=== PATIENT | male | born 1995 | race Caucasian/White ===

== ENCOUNTER 2017-12-03 20:11 | Emergency (ER) | payer OTHER ==
[~2017-12-03] VITALS: Ht 188 cm; Wt 89.7 kg
[2017-12-03 20:15] VITALS: TEMP 37; Ht 188 cm; Wt 89.7 kg
[2017-12-03] MEDS ORDERED: SODIUM CHLORIDE 0.9% 1000ML 1,000 ML IV STA (20:42)
[2017-12-03 20:55] LABS: BASO % 0.1 %; BASO ABS # 0.01 K/uL (0-0.2); EOS % 0.2 %; EOS ABS # 0.02 K/uL (0-0.5); HEMATOCRIT 43.6 % (42-52); HEMOGLOBIN 15.1 g/dL (14.0-18.0); IG# 0.02 K/uL (0.00-0.02); LYMPH ABS # 1.32 K/uL (1.2-3.4); MEAN CELL VOLUME 86.9 fL (80-100); MEAN CORPUSCULAR HEMOGLOBIN 30.1 pg (25-34); MEAN CORPUSCULAR HGB CONC 34.6 g/dl (32-36); MEAN PLATELET VOLUME 10.4 fL (7.4-10.4); MONO % 5.7 %; MONO ABS # 0.47 K/uL (0.11-0.59); NEUT % 77.8 %; PLATELET COUNT 270 K/uL (130-400); RED CELL DISTRIBUTION WIDTH CV 12.4 % (11.5-14.5); RED CELL DISTRIBUTION WIDTH SD 39.3 fL (36.4-46.3); WHITE BLOOD COUNT 8.24 K/uL (4.8-10.8)
--- NOTE | 2017-12-03 20:58 | DIAGNOSTIC IMAGING REPORT ---
CHEST ONE VIEW PORTABLE CLINICAL HISTORY: Weakness COMPARISON STUDY: No previous studies for comparison. FINDINGS: The cardiac and mediastinal contours are normal. There is no evidence of focal pulmonary consolidation. There is no evidence of failure. No pleural effusions are visualized.[ IMPRESSION: No active disease in the chest. Electronically signed by: Rocco Garcia M.D. 12/03/2017 8:57 PM Dictated Date/Time: 12/03/2017 8:57 PM
[2017-12-03 21:20] LABS: ALBUMIN 4.4 gm/dl (3.4-5.0); ALKALINE PHOSPHATASE 48 U/L (45-117); ALT/SGPT 24 U/L (12-78); AST/SGOT 16 U/L (15-37); BLOOD UREA NITROGEN 11 mg/dl (7-18); CALCIUM 9.4 mg/dl (8.5-10.1); CARBON DIOXIDE 24 mmol/L (21-32); CREATININE 1.23 mg/dl (0.60-1.40); GLUCOSE 146 mg/dl (70-99); LIPASE 68 U/L (73-393); POTASSIUM 3.1 mmol/L (3.5-5.1); SODIUM 139 mmol/L (136-145); TOTAL PROTEIN 8.4 gm/dl (6.4-8.2)
[2017-12-03] MEDS ORDERED: IBUP-1050 PO (21:40)
[2017-12-03] MEDS ORDERED: [UNRECOGNIZED DRUG - OTHER] PO (21:40)
[2017-12-03 22:24] VITALS: BP 163/89; PULSE 97; O2SAT 98
--- NOTE | 2017-12-03 22:56 | EMERGENCY ROOM VISIT NOTE ---
History Report prepared by Patria: Bridget Crooks Under the Supervision of: Dr. Naldo Tomas D.O. First contact with patient: 20:29 Chief Complaint: HYPERTENSION Stated Complaint: HYPERTENSION NUMBNESS SOB History of Present Illness The patient is a 22 year old male who presents to the Emergency Room with complaints of hypertension beginning today. He states that 2 weeks ago he began having headaches, fatigue, and lightheadedness that would be constant everyday. He reports he went to [facility] last week and was told to monitor his blood pressure for the next week. He notes that over the past 2 days, he had some numbness and tingling in his bilateral legs, feet, and hands. 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 The pt reports he was on a bus from [place] for 5 hours yesterday but denies headache, change in vision, fevers, shortness of breath, nausea, vomiting, diarrhea, pain with urination, and melena. He states he got bit by a tick 2 months ago but never developed a rash however, he is currently requesting a Lyme's test. Patient denies diabetes, hypertension, hyperlipidemia, CAD, history of sudden at a young age, and smoking. Patient denies swelling of calves, history of immobilization or recent surgery, prior history of DVT, hemoptysis, or history of malignancy. 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 A total of 10 systems reviewed and were otherwise negative. Past Medical & Surgical Medical Problems: (1) No significant past medical history Family History No pertinent family history Social History Smoking Status: Never Smoker Smokeless Tobacco Use: Unknown Marital Status: in relationship Occupation Status: [employer] student Current/Historical Medications Scheduled PRN Ibuprofen (Advil), 200-400 MG PO BID PRN for Pain [Sudafed-Naproxen], 1 TAB PO Q12 PRN for Physical Exam Vital Signs Date Time Temp Pulse Resp B/P (MAP) Pulse Ox O2 Delivery O2 Flow Rate FiO2 12/03/17 22:24 97 20 163/89 98 12/03/17 22:16 87 19 12/03/17 22:11 93 18 99 12/03/17 22:06 92 18 97 12/03/17 22:01 105 11 97 12/03/17 22:00 163/89 12/03/17 21:56 98 14 91 12/03/17 21:51 100 17 100 12/03/17 21:46 100 19 98 12/03/17 21:41 86 17 12/03/17 21:36 98 17 12/03/17 21:31 98 22 163/89 100 Room Air 12/03/17 21:26 99 23 164/88 12/03/17 21:21 106 14 98 12/03/17 21:16 101 14 12/03/17 21:11 90 19 100 12/03/17 21:09 91 18 148/101 98 Room Air 12/03/17 21:06 82 18 99 12/03/17 21:01 89 10 95 12/03/17 21:00 148/108 12/03/17 20:56 90 20 98 12/03/17 20:51 89 13 100 12/03/17 20:46 94 13 12/03/17 20:41 109 29 12/03/17 20:36 108 21 87 12/03/17 20:34 97 12/03/17 20:31 103 20 167/97 98 12/03/17 20:26 160/92 12/03/17 20:15 37.0 93 18 172/99 99 Room Air Physical Exam GENERAL: Sitting up in bed, alert, well appearing, well nourished, no distress, non-toxic EYE EXAM: normal conjunctiva. PERRL and EOM's intact. OROPHARYNX: no exudate, no erythema, lips, buccal mucosa, and tongue normal and mucous membranes are moist NECK: supple, no nuchal rigidity, no adenopathy, non-tender LUNGS: Clear to auscultation. Normal chest wall mechanics HEART: no murmurs, S1 normal and S2 normal ABDOMEN: abdomen soft, non-tender, normo-active bowel sounds, no masses, no rebound or guarding. BACK: Back is symmetrical on inspection and there is no deformity, no midline tenderness, no CVA tenderness. SKIN: no rashes and no bruising UPPER EXTREMITIES: upper extremities are grossly normal. LOWER EXTREMITIES: No pitting edema. NEURO EXAM: Normal sensorium, cranial nerves II-XII grossly intact, normal speech, no gross weakness of arms, no gross weakness of legs. Ambulates without difficulty. Medical Decision & Procedures ER Provider Diagnostic Interpretation: Radiology results as stated below per my review and the radiologist's interpretation: CHEST ONE VIEW PORTABLE CLINICAL HISTORY: Weakness COMPARISON STUDY: No previous studies for comparison. FINDINGS: The cardiac and mediastinal contours are normal. There is no evidence of focal pulmonary consolidation. There is no evidence of failure. No pleural effusions are visualized.[ IMPRESSION: No active disease in the chest. Electronically signed by: Rocco Garcia M.D. 12/03/2017 8:57 PM Laboratory Results 12/03/17 20:32 Red Blood Count 5.02, Mean Corpuscular Volume 86.9, Mean Corpuscular Hemoglobin 30.1, Mean Corpuscular Hemoglobin Concent 34.6, Mean Platelet Volume 10.4, Neutrophils (%) (Auto) 77.8, Lymphocytes (%) (Auto) 16.0, Monocytes (%) (Auto) 5.7, Eosinophils (%) (Auto) 0.2, Basophils (%) (Auto) 0.1, Neutrophils # (Auto) 6.40, Lymphocytes # (Auto) 1.32, Monocytes # (Auto) 0.47, Eosinophils # (Auto) 0.02, Basophils # (Auto) 0.01 12/03/17 20:32 Test 12/03/17 20:32 White Blood Count 8.24 K/uL (4.8-10.8) Red Blood Count 5.02 M/uL (4.7-6.1) Hemoglobin 15.1 g/dL (14.0-18.0) Hematocrit 43.6 % (42-52) Mean Corpuscular Volume 86.9 fL (80-100) Mean Corpuscular Hemoglobin 30.1 pg (25-34) Mean Corpuscular Hemoglobin Concent 34.6 g/dl (32-36) Platelet Count 270 K/uL (130-400) Mean Platelet Volume 10.4 fL (7.4-10.4) Neutrophils (%) (Auto) 77.8 % Lymphocytes (%) (Auto) 16.0 % Monocytes (%) (Auto) 5.7 % Eosinophils (%) (Auto) 0.2 % Basophils (%) (Auto) 0.1 % Neutrophils # (Auto) 6.40 K/uL (1.4-6.5) Lymphocytes # (Auto) 1.32 K/uL (1.2-3.4) Monocytes # (Auto) 0.47 K/uL (0.11-0.59) Eosinophils # (Auto) 0.02 K/uL (0-0.5) Basophils # (Auto) 0.01 K/uL (0-0.2) RDW Standard Deviation 39.3 fL (36.4-46.3) RDW Coefficient of Variation 12.4 % (11.5-14.5) Immature Granulocyte % (Auto) 0.2 % Immature Granulocyte # (Auto) 0.02 K/uL (0.00-0.02) D-Dimer 200 ug/L FEU (0-500) Anion Gap 11.0 mmol/L (3-11) Est Creatinine Clear Calc Drug Dose 110.5 ml/min Estimated GFR () 96.7 Estimated GFR (Non- 83.4 BUN/Creatinine Ratio 8.7 (10-20) Calcium Level 9.4 mg/dl (8.5-10.1) Total Bilirubin 1.2 mg/dl (0.2-1) Direct Bilirubin 0.3 mg/dl (0-0.2) Aspartate Amino Transf (AST/SGOT) 16 U/L (15-37) Alanine Aminotransferase (ALT/SGPT) 24 U/L (12-78) Alkaline Phosphatase 48 U/L (45-117) Troponin I < 0.015 ng/ml (0-0.045) Total Protein 8.4 gm/dl (6.4-8.2) Albumin 4.4 gm/dl (3.4-5.0) Lipase 68 U/L (73-393) Lyme Disease IgG Antibody NEG (NEG) Lyme Disease IgM Antibody NEG (NEG) Laboratory results per my review. Medications Administered Medications (Trade) Dose Ordered Sig/[place] Route Start Time Stop Time Status Last Admin Dose Admin Sodium Chloride 1,000 ml @ 999 mls/hr Q1H1M STAT IV 12/03/17 20:42 12/03/17 21:42 DC 12/03/17 20:42 999 MLS/HR ECG Per My Interpretation Indication: other (HTN) Rate (beats per minute): 95 Rhythm: sinus rhythm Findings: RBBB (incomplete), other (rightward axis) ED Course ED COURSE: Vital signs were reviewed and showed hypertension referred to PCP The patients medical record was reviewed The above diagnostic studies were performed and reviewed. ED treatments and interventions as stated above. 2037: The patient was evaluated in room B4. A complete history and physical examination was performed. 2206: Upon reevaluation, I recommended repeating a troponin. I explained it is very low risk. He would like to go home and follow up for his hypertension. I discussed my findings with the patient and he understands and agrees with the treatment plan. Based on the patients age, coexisting illnesses, exam and lab findings the decision to treat as an outpatient was made. The patient remained stable while under my care. The patient appeared well at the time of discharge. Medical Decision Differential diagnosis: Etiologies such as premature contractions, electrolyte abnormality, cardiac dysrhythmia, thyroid dysfunction, pulmonary embolism, infection, gastrointestinal, as well as others were entertained. Patient is a 22-year-old male who presents the ER for headache which is been going on for the past 2 weeks. Patient is also complaining of palpitation which is been present for the past 2 days. He is felt weak and tired. He has bilateral paresthesias in the upper and lower extremities. He does have myalgias as well. He also complains of some intermittent chest pain which is separate to his palpitations which she describes as a strong pulse in his chest. He has no history of any cardiac risk factors, Marfan's or Isai- Danlos. No PE risk factors with the exception of travel. D-dimer was negative. CBC along with BMP shows mild hypokalemia. Bilirubin was normal. Troponin was negative. Lipase was normal. Lyme was negative. Chest x-ray was unremarkable. EKG does not suggest any acute pathology. Based on his symptoms I uncertain of truly was causing symptoms. Heart rate was in the 90s I do favor this secondary to him being worked up. He was hypertensive but will not treat at this time as he is truly asymptomatic and I am uncertain of his true blood pressure. Did recommend a repeat troponin but noted that it would likely be close to 2-1/2 hours to 3 hours prior to him being discharged from here. I did inform him that his a low cardiac risk. Based on this he requests to be discharged. He will follow-up with PCP/[facility] as an outpatient. Discussed with Pt concerning signs and symptoms to watch out for. Pt was instructed to follow up with their PCP and discussed with the patient their option to return to the ED at anytime for persistent or worsening symptoms. The appropriate anticipatory guidance and out-patient management, including indications for return to the emergency department, were explained at length to the patient and understood. Medication Reconcilliation Current Medication List: was personally reviewed by me Blood Pressure Screening Patient's blood pressure: Elevated blood pressure Blood pressure disposition: Referred to PCP Impression Primary Impression: Palpitations Additional Impressions: HTN (hypertension) Hypokalemia Scribe Attestation The scribe's documentation has been prepared under my direction and personally reviewed by me in its entirety. I confirm that the note above accurately reflects all work, treatment, procedures, and medical decision making performed by me. Departure Information Dispostion Home / Self-Care Forms HOME CARE DOCUMENTATION FORM, IMPORTANT VISIT INFORMATION, WORK / SCHOOL INSTRUCTIONS Patient Instructions My [facility] Additional Instructions Please follow up with your primary care doctor or if you are a student, [facility] with in the next 24 hours. Any worsening of your symptoms, please return to the ED immediately. This includes any fevers greater than 100.4, worsening pain, chest pain, shortness breath, persistent nausea, vomiting, unable to eat or drink, or any other concerning signs or symptoms from your standpoint. Problem Qualifiers Additional Impressions: HTN (hypertension) Hypertension type: unspecified Qualified Codes: I10 - Essential (primary) hypertension
== END 2017-12-03 22:25 | disposition home or self-care (01) ==
LOC: C.EDB 20:14
DX: R00.2 Palpitations (principal); I10 Essential (primary) hypertension; E87.6 Hypokalemia